=== PATIENT | male | born 1970 | race Caucasian/White ===

== ENCOUNTER 2022-01-29 06:16 | Inpatient (IN) | payer MEDICAID ==
[~2022-01-29] VITALS: Ht 180.3 cm; Wt 90.9 kg
[2022-01-29] MEDS ORDERED: normal saline 1000ML IV soln IVB ONE ×2 (07:40→08:40)
[2022-01-29] MEDS ORDERED: piperacillin/tazo 3.375gm/50ml 50 ML IV ONE (07:40)
[2022-01-29] MEDS ORDERED: azithromycin/NS 500mg/250ml 250 ML IV ONE (07:40)
[2022-01-29] MEDS ORDERED: vancomycin/NS 1 GM ADD-VANTAGE 250 ML IV ONE (07:40)
[2022-01-29 08:03] LABS: BASOPHILS % (AUTO) 0.4 % (0-1); EOSINOPHILS # (AUTO) 0.1 X10'3 (0-0.9); EOSINOPHILS % (AUTO) 0.5 % (0-6); HEMATOCRIT 37.9 % (42.0-52.0); HEMOGLOBIN 12.6 g/dl (14.0-17.9); LYMPHOCYTES # (AUTO) 0.6 X10'3 (1.1-4.8); LYMPHOCYTES % (AUTO) 5.4 % (21-51); MEAN CORPUSCULAR HEMOGLOBIN 30.1 PG (27.0-31.0); MEAN CORPUSCULAR HGB CONC 33.2 g/dL (33.0-36.5); MEAN CORPUSCULAR VOLUME 90.8 FL (78-98); MEAN PLATELET VOLUME 9.9 FL (7.4-10.4); MONOCYTES # (AUTO) 0.6 X10'3 (0-0.9); MONOCYTES % (AUTO) 5.5 % (2-12); NEUTROPHILS # (AUTO) 10.2 X10'3 (1.8-7.7); NEUTROPHILS % (AUTO) 88.2 % (42-75); PLATELET COUNT 168 X10'3 (140-440); RED BLOOD COUNT 4.18 X10'6 (4.70-6.10); RED CELL DISTRIBUTION WIDTH 13.8 % (11.5-14.5); WHITE BLOOD COUNT 11.6 X10'3 (4.5-11.0)
[2022-01-29 08:22] LABS: ALANINE AMINOTRANSFERASE 45 U/L (12-78); ALBUMIN 1.4 G/DL (3.4-5.0); ALBUMIN/GLOBULIN RATIO 0.3 (1.1-1.5); ALKALINE PHOSPHATASE 50 IU/L (46-116); ANION GAP 7 (8-16); ASPARTATE AMINO TRANSFERASE 22 U/L (10-37); BILIRUBIN,TOTAL 0.7 MG/DL (0.1-1.0); BLOOD UREA NITROGEN 45 MG/DL (7-18); BUN/CREATININE RATIO 20.4 (5.4-32.0); CALCIUM 7.8 MG/DL (8.5-10.1); CHLORIDE 90 MMOL/L (99-107); CREATININE 2.21 MG/DL (0.60-1.10); LIPASE 114 U/L (73-393); POTASSIUM 3.7 MMOL/L (3.5-5.1); SODIUM 122 MMOL/L (135-145); TOTAL CARBON DIOXIDE 24.7 MMOL/L (24-32); TOTAL PROTEIN 5.8 G/DL (6.4-8.2); eGFR 32 ML/MIN
[2022-01-29 08:26] LABS: GLUCOSE 590 MG/DL (70-104)
--- NOTE | 2022-01-29 08:30 | NUR ---
pt rgt side lung sound is diminished with crackle .
--- NOTE | 2022-01-29 08:38 | NUR ---
Pt requesting pain medications. MD aware, however BP 61/39, and unable to tolerate pain medications at this time.
[2022-01-29] MEDS ORDERED: acetaminophen 325mg tablet PO ONE (08:40)
--- NOTE | 2022-01-29 08:40 | NUR ---
Verbal for 3rd 1 Liter NS bolus obtained from EDMD Guallpa
[2022-01-29] MEDS ORDERED: normal saline 1000ml 1,000 ML IVB ONE (08:45)
[2022-01-29 08:52] LABS: ANISOCYTOSIS 1+; HYPERSEGMENTED NEUTROPHILS FEW; PLATELET ESTIMATE NORMAL; TOTAL CELLS COUNTED 100
[2022-01-29] MEDS: insulin Lispro (HumaLOG) vial - multi-dose SQ SCH (09:01)
[2022-01-29] MEDS ORDERED: NORepinephrine 8mg/ 250ml NS 250 ML IV PRN (09:15)
--- NOTE | 2022-01-29 09:17 | NUR ---
PT BP WITH MANNUAL BP READS NOTIFIED THE MD ORDER FOR LEVOPHED.WILL FOLLOW THE ORDERS.
--- NOTE | 2022-01-29 09:53 | NUR ---
SPOKE TO DR LANDRY EARLIER REGARDING PATIENT BP WITH MAP ABOVE 65 2-3 TIMES , PER MD DO NOT START THE LEVOPHED DRIP . FOLLOWED THE ORDERS NOT STARTED THE DRIP .
--- NOTE | 2022-01-29 10:07 | NUR ---
SPOKE TO DR LANDRY AND INFORMED THAT PT BP IS 83/50 X 2 READING PER MD KEEP MONITORING ,NO NEED FOR LEVOPHED.
--- NOTE | 2022-01-29 10:20 | NUR ---
dr shelton came to nurses station and stated that pt bp is low lets start with the levophed drip.will follow the orders.
--- NOTE | 2022-01-29 10:31 | NUR ---
levophed drip started 8 mins earlier pt map bp is 66 after the intiation of levophed drip.will cont to monitor the bp if needed we can titrate the drip rate.
--- NOTE | 2022-01-29 11:55 | NUR ---
spoke to dr pardo at this time sbar regarding pt recent bp and lactic acid .no further question or orders from .
--- NOTE | 2022-01-29 12:20 | NUR ---
Genoveva andersen in EDM - 01/29/22 at 1221 by BIBI SBAR TO [facility] PRIMARY NURSE AT [facility] AT [phone] REGARDING PT F/U APPT FOR RECHECKING THE SITE AND ALSO INFORMED TO RETURN TO ER FOR ACTIVE BLEEDING .
--- NOTE | 2022-01-29 13:00 | NUR ---
notified the charge that pt is admitted but has no admitting orders from any md ,pt want to talk to the doctor who is admitting him.also informe dthat pt is on levophed drip and i titrated few mins ago for low MAP.
--- NOTE | 2022-01-29 13:05 | NUR ---
pt requesting for icu pt he won't tell the speech writer what he wants ,informed that we can page but not sure when its going to happen.
--- NOTE | 2022-01-29 13:09 | NUR ---
called dr pardo at this time has not picked up the call .
--- NOTE | 2022-01-29 14:24 | NUR ---
NO ADMITTING ORDERS YET.
--- NOTE | 2022-01-29 14:37 | NUR ---
SPOKE TO DR MARTINS REGARDING ADMITTING ORDERS PER HE TOLD THE ER DR HE IS NOT ABLE TO DO IT FROM HIS COMPUTER , PER MD HE WILL PUT THE OTHER ORDER WHEN PT GET THE BED UP IN ICU.NOTIFIED [facility] SREEDHAR AND LUCI SUP.
[2022-01-29] MEDS ORDERED: APIX2.5T PO (15:26)
[2022-01-29] MEDS ORDERED: LISI40TA13 PO (15:29)
[2022-01-29] MEDS ORDERED: CARV-50 PO (15:29)
[2022-01-29] MEDS ORDERED: PROP40TA72 PO (15:33)
[2022-01-29] MEDS ORDERED: POTA10CA44 PO (15:34)
[2022-01-29] MEDS ORDERED: FAMO40TA7 PO ×2 (15:36→15:37)
[2022-01-29] MEDS ORDERED: INSU100V30 SQ ×2 (15:40→15:42)
[2022-01-29] MEDS ORDERED: INSU100V9 SQ ×2 (15:51→15:54)
--- NOTE | 2022-01-29 16:03 | NUR ---
SPOKE TO DR BENJAMIN EARLIER REGARDING PT CONDITION,ABD PAIN,REQUEST FOR DIET ORDERS ,PT HAS NOT URINATED SINCE HE IS HERE IN ER ,RECIVED TELE ORDERS FOR BLADDER SCAN ,IF RETAIN MORE THAN 400 ML PUT AGUERO CATHETER. PUREED DIET ORDERS,STAT KUB.
--- NOTE | 2022-01-29 16:34 | NUR ---
CALLING [employer] IN[employer]CTOR {CASSIDY}TO GET THE ORDERS FOR HYPERGLYCEMIA PROTOCOL. PT BLD SUGAR WAS 590 THIS AM . DID N'T ANSWER THE CALL AT THIS TIME.
[2022-01-29] MEDS ORDERED: MESSAGE TO PHARMACY PO ONE (17:05)
[2022-01-29] MEDS ORDERED: insulin Lispro (HumaLOG) vial - multi-dose SQ SCH (17:05)
[2022-01-29] MEDS ORDERED: dextrose 50%-water 50ml dispensing syringe IV PRN ×2 (17:05)
[2022-01-29] MEDS ORDERED: DEXTROSE 15 GM of carb/4 tabs (each vial/BOTTLE has 4 tablets) PO PRN ×2 (17:05)
[2022-01-29] MEDS ORDERED: glucagon, human recombinant 1mg kit SUBCUT PRN (17:05)
--- NOTE | 2022-01-29 17:20 | NUR ---
notified pt is not ready for urination and stated "i will pee when i have to pee".
[2022-01-29 17:58] LABS: APTT 30 SECONDS (22-32)
[2022-01-29 18:01] LABS: ALANINE AMINOTRANSFERASE 43 U/L (12-78); ALBUMIN 1.4 G/DL (3.4-5.0); ALBUMIN/GLOBULIN RATIO 0.3 (1.1-1.5); ALKALINE PHOSPHATASE 50 IU/L (46-116); ANION GAP 8 (8-16); ASPARTATE AMINO TRANSFERASE 31 U/L (10-37); BILIRUBIN,TOTAL 0.7 MG/DL (0.1-1.0); BLOOD UREA NITROGEN 51 MG/DL (7-18); BUN/CREATININE RATIO 23.9 (5.4-32.0); CALCIUM 7.7 MG/DL (8.5-10.1); CHLORIDE 94 MMOL/L (99-107); CREATININE 2.13 MG/DL (0.60-1.10); POTASSIUM 3.8 MMOL/L (3.5-5.1); SODIUM 124 MMOL/L (135-145); TOTAL CARBON DIOXIDE 22.3 MMOL/L (24-32); TOTAL PROTEIN 5.9 G/DL (6.4-8.2); eGFR 33 ML/MIN
[2022-01-29] MEDS: normal saline 1000ml 1,000 ML IV SCH (18:02)
[2022-01-29 18:03] LABS: HEMOGLOBIN A1C 12.8 % (4.5-6.2)
[2022-01-29 18:07] LABS: GLUCOSE 493 MG/DL (70-104)
--- NOTE | 2022-01-29 18:07 | NUR ---
CRITICAL LAB VALU LINETTE SUGAR - 493.
[2022-01-29] MEDS ORDERED: insulin Lispro (HumaLOG) vial - multi-dose SQ ONE (18:20)
--- NOTE | 2022-01-29 18:20 | NUR ---
SPOKE TO DR BENJAMIN TO INFORM ABOUT CRITICAL LAB VALUE ,TELE ORDER FOR ACCUCHECK Q4 HR ,GIVE HUMOLOG PER NUTRITIONAL CORRECTIONAL SCALE ,GIVE 12 UNIT SQ HUMOLOG AT THIS TIME FOR BLD SUGAR OF 493 .
--- NOTE | 2022-01-29 18:24 | NUR ---
CALLED PHARMACY FOR HUMOLOG.
[2022-01-29 18:51] LABS: CLARITY,URINE SLIGHTLY CLOUDY (Clear); GLUCOSE, URINE >=1000 mg/dl (Neg); KETONES,URINE TRACE mg/dl (Neg); LEUKOCYTE ESTERASE ,URINE NEGATIVE (Neg); NITRITES, URINE NEGATIVE (Neg); OCCULT BLOOD,URINE LARGE (Neg); PH,URINE 5.5 (4.8-8.0); PROTEIN,URINE 30 mg/dl (Neg)
[2022-01-29 18:53] LABS: COLOR,URINE DARK YELLOW (Yellow); UA COLLECTION TYPE NON-SPECIFIED
[2022-01-29 19:03] LABS: URINE AMPHETAMINE SCREEN POSITIVE (Neg); URINE BARBITUATE SCREEN NEGATIVE (Neg); URINE BENZODIAZEPINES SCREEN NEGATIVE (Neg); URINE CANNABINOID SCREEN POSITIVE (Neg); URINE COCAINE SCREEN NEGATIVE (Neg); URINE METHADONE SCREEN NEGATIVE (Neg); URINE OPIATE SCREEN NEGATIVE (Neg); URINE PHENCYCLIDINE SCREEN NEGATIVE (Neg)
[2022-01-29 19:19] LABS: BACTERIA,URINE 1+ /HPF (Neg); SQUAMOUS EPITHELIAL CELL,UR FEW /LPF (FEW); WBC,URINE 0-4 /HPF (0-4)
[2022-01-29 19:20] LABS: FINE GRANULAR CAST 0-3 /LPF (NEGATIVE)
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
[2022-01-29] MEDS ORDERED: HYDROmorphone inj. 0.5 MG/0.5 ML DISP.SYRIN IV ONE (19:30)
--- NOTE | 2022-01-29 19:30 | NUR ---
PT STATES HIS REACTION TO CODEINE IS FEELING "SICK TO HIS STOMACH"; HE DENIES ANY OTHER REACTIONS. HE IS AGREABLE TO PAIN MEDS IF GIVEN W/ NAUSEA MEDICATIONS.
[2022-01-29] MEDS ORDERED: ondansetron/PF 4mg/2ml inj IV ONE (19:40)
--- NOTE | 2022-01-29 20:02 | NUR ---
PT NOW APPEARS MUCH MORE CALM; HE IS SLEEPING BUT AWAKENS WHEN CALLED BY NAME
[2022-01-29] MEDS: apixaban 5mg tablet PO SCH (20:15)
[2022-01-29] MEDS ORDERED: insulin glargine (Lantus) pen - multi-dose SQ SCH (21:00)
[2022-01-30] MEDS: piperacillin/tazo 3.375gm/50ml 50 ML IV SCH ×2 (00:32→08:12)
[2022-01-30] MEDS: normal saline 1000ml 1,000 ML IV SCH (06:02)
--- NOTE | 2022-01-30 07:28 | NUR ---
Pt alert and oriented. Requesting jello and ice chips. Turned down heat in room. Pt restless. Vital signs stable. Norepinephrine is off and has been for several hours. MAP remains >60.
--- NOTE | 2022-01-30 07:30 | NUR ---
Pt denies cp and any further needs at this time.
[2022-01-30] MEDS ORDERED: azithromycin/NS 500mg/250ml 250 ML IV SCH (08:00)
[2022-01-30] MEDS: apixaban 5mg tablet PO SCH (08:27)
[2022-01-30] MEDS: insulin Lispro (HumaLOG) vial - multi-dose SQ SCH (09:10)
--- NOTE | 2022-01-30 09:18 | NUR ---
Pt refused breakfast this morning, only ate one bite of jello (witnessed). Holding corrective insulin dose.
--- NOTE | 2022-01-30 09:45 | NUR ---
Answered pt's call light. Pt upset because "he hasn't eaten in a day." Reminded pt that he refused breakfast and asked if he would like his tray placed near bedside. Pt stated yes, and had no further needs.
--- NOTE | 2022-01-30 10:30 | NUR ---
Pt's condition stable. Sleeping at this time.
--- NOTE | 2022-01-30 12:00 | NUR ---
at bedside. Pt anxious to go home. States he feels better.
[2022-01-30] MEDS ORDERED: lisinopril 10 MG tablet PO ONE (12:35)
[2022-01-30 14:00] VITALS: BP 135/90
--- NOTE | 2022-01-30 14:15 | NUR ---
Pt decided to sign out AMA. Hospitalist aware. AMA form signed. at bedside. Midline pulled, applied pressure x5min, gauze + kerlix wrap to upper bicep. Pt already pulled out R IV line earlier. d/c 18g LAC. All IV catheter's intact, WNL. Pt strongly encouraged to follow up with doctor lele for continued treatment. Verbalized understanding. Pt taken to car in w/c, driving.
[2022-01-30] MEDS ORDERED: carvedilol 6.25mg tablet PO SCH (20:00)
== END 2022-01-30 15:44 | disposition left against medical advice (07) | DRG 194 ==
LOC: ER 06:17 → ED HOLD 10:37
PROVIDERS: ADMIT Specialist; ATTEND Specialist
DX: I11.0 Hypertensive heart disease with heart failure (principal); E87.2 Acidosis; I50.21 Acute systolic (congestive) heart failure; I42.7 Cardiomyopathy due to drug and external agent; J44.9 Chronic obstructive pulmonary disease, unspecified; Z53.29 Procedure and treatment not carried out because of patient's decision for other reasons; Z20.822 Contact with and (suspected) exposure to COVID-19; E11.65 Type 2 diabetes mellitus with hyperglycemia; F15.90 Other stimulant use, unspecified, uncomplicated; F17.200 Nicotine dependence, unspecified, uncomplicated; Z91.19 Patient's noncompliance with other medical treatment and regimen; Z88.5 Allergy status to narcotic agent; Z79.899 Other long term (current) drug therapy; Z79.4 Long term (current) use of insulin
CPT/HCPCS: 36410; 36415; 71045; 74018; 80053; 80305; 81001; 82570; 82948; 83036; 83605; 83690; 83880; 83935; 84145; 84300; 84484; 85007; 85025; 85610; 85730; 87040; 87635; 93306; 96365; 96366; 96368; 96372; 99291; C1751; C9803; G0378; J0456; J1170; J1815; J2405; J2543; J3370; J3490; J7030